=== PATIENT | female | born 1975 | race Two or more races ===

== ENCOUNTER 2022-07-06 08:05 | Outpatient (CLI) | payer BC, OTHER | END 2022-07-06 23:59 | disposition home or self-care (01) | LOC: WOU 08:05 | PROVIDERS: ATTEND Podiatrist Foot & Ankle Surgery | DX: L60.0 Ingrowing nail (principal); L03.031 Cellulitis of right toe; L60.3 Nail dystrophy; M79.674 Pain in right toe(s); E11.9 Type 2 diabetes mellitus without complications; Z79.84 Long term (current) use of oral hypoglycemic drugs | CPT/HCPCS: G0463 ==

== ENCOUNTER 2022-11-17 14:34 | Outpatient (CLI) | payer BC | END 2022-11-17 23:59 | disposition home or self-care (01) | LOC: WOU 14:34 | PROVIDERS: ATTEND Podiatrist Foot & Ankle Surgery | DX: L60.0 Ingrowing nail (principal); L03.031 Cellulitis of right toe; L60.3 Nail dystrophy; S93.525D Sprain of metatarsophalangeal joint of left lesser toe(s), subsequent encounter; S93.524D Sprain of metatarsophalangeal joint of right lesser toe(s), subsequent encounter; X58.XXXD Exposure to other specified factors, subsequent encounter; E11.9 Type 2 diabetes mellitus without complications; Z79.84 Long term (current) use of oral hypoglycemic drugs | CPT/HCPCS: G0463 ==